=== PATIENT | male | born 1970 | race Two or more races ===

== ENCOUNTER 2020-04-24 17:04 | Emergency (ER) | payer OTHER ==
[~2020-04-24] VITALS: Ht 172.7 cm; Wt 85.0 kg
[2020-04-24 17:06] VITALS: BP 169/113
[2020-04-24] MEDS ORDERED: DIPH,PERTUSS(ACELL),TET VAC/PF 0.5 ML IM-VACC ONE ×2 (17:19→17:30)
== END 2020-04-24 18:47 | disposition home or self-care (01) ==
LOC: ED 18:44
DX: S00.81XA Abrasion of other part of head, initial encounter (principal); S00.31XA Abrasion of nose, initial encounter; S00.511A Abrasion of lip, initial encounter; F17.200 Nicotine dependence, unspecified, uncomplicated; W18.39XA Other fall on same level, initial encounter; Y93.73 Activity, racquet and hand sports; Y92.828 Other wilderness area as the place of occurrence of the external cause; Y99.8 Other external cause status
CPT/HCPCS: 70450; 72125; 90471; 90715; 99285